=== PATIENT | male | born 1970 | race Caucasian/White ===

== ENCOUNTER 2019-05-25 22:36 | Emergency (ER) | payer SELFPAY ==
[~2019-05-25] VITALS: Ht 180.3 cm; Wt 104.5 kg
[2019-05-25 22:49] VITALS: Ht 180.3 cm; Wt 104.5 kg
[2019-05-25] MEDS ORDERED: KEFLEX500 MG PO (23:02)
[2019-05-26 00:17] VITALS: BP 119/73
== END 2019-05-26 00:19 | disposition home or self-care (01) ==
LOC: D.ER 22:36
DX: S81.012A Laceration without foreign body, left knee, initial encounter (principal); W29.3XXA Contact with powered garden and outdoor hand tools and machinery, initial encounter; Y93.89 Activity, other specified; Y92.89 Other specified places as the place of occurrence of the external cause